=== PATIENT | female | born 1945 | race Caucasian/White ===

== ENCOUNTER 2020-06-06 11:10 | Outpatient (REF) | payer MEDICARE, SELFPAY ==
--- NOTE | 2020-06-06 12:22 | XR_ITS ---
EXAMINATION: XR CHEST CLINICAL INFORMATION: COPD. COMPARISON: None TECHNIQUE: 2 views of the chest were obtained. FINDINGS: The lungs are well-expanded with minimal prominence of interstitial markings in the right lung base but no focal consolidation, mass or pleural effusion. The heart size and pulmonary vascularity is normal. No gross bony abnormality seen. XR/XR chest 2V IMPRESSION: Unremarkable chest examination.
[2020-06-06 13:40] LABS: Hematocrit 38.8 % (37-47); Hemoglobin 12.2 g/dl (12.0-16.0); Mean Corpuscular HGB Conc 31.4 g/dl (31.0-35.0); Mean Corpuscular Hemoglobin 32.8 pg (27.0-33.0); Mean Corpuscular Volume 104.3 fL (80-98); Platelet Count 175 X10*3/uL (160-400); Red Blood Count 3.72 X10*6/uL (4.20-5.50); Red Cell Distribution Width 14.4 % (11.0-16.0)
[2020-06-06 13:48] LABS: SARS COV2 IgG Negative (Negative)
[2020-06-06 13:58] LABS: WBC ABN SCTR FOR CBC 1
[2020-06-06 14:14] LABS: White Blood Count 64.9 X10*3/uL (4.8-10.8)
[2020-06-06 14:35] LABS: Band Neutrophils Percent 0 % (3-5); Lymphocytes Absolute Manual 56.5 X10*3/uL (0.6-4.8); Lymphocytes Percent Manual 87 % (20-40); Monocytes Absolute Manual 3.2 X10*3/uL (0.0-1.2); Monocytes Percent Manual 5 % (2-11); Neutrophils Absolute Manual 5.2 X10*3/uL (2.2-7.9); Neutrophils Percent Manual 8 % (45-73); Platelet Estimate NORMAL (NORMAL); Platelet Morphology Comment NORMAL
[2020-06-06 14:36] LABS: RBC Morphology NOTED; Stomatocytes 1+
[2020-06-06 14:43] LABS: Erythrocyte Sedimentation Rate 29 MM/HR (0-20)
[2020-06-10 10:57] LABS: IgA 9 mg/dL (70-320); IgG 1040 mg/dL (600-1540); IgM 34 mg/dL (50-300)
== END 2020-06-06 11:11 | disposition home or self-care (01) ==
LOC: HO.LAB 11:10
PROVIDERS: PCP Internal Medicine; Referring Provider Internal Medicine; Visit Provider Hospitalist
DX: J44.9 Chronic obstructive pulmonary disease, unspecified (principal); J96.10 Chronic respiratory failure, unspecified whether with hypoxia or hypercapnia; F17.200 Nicotine dependence, unspecified, uncomplicated; Z20.828 Contact with and (suspected) exposure to other viral communicable diseases
CPT/HCPCS: 36415; 71046; 82784; 85007; 85027; 85060; 85652; 86769; 99212

== ENCOUNTER → 2020-10-06 11:02 | Outpatient (BNVA) | payer MEDICARE, SELFPAY | PROVIDERS: PCP Internal Medicine; Visit Provider Hospitalist | DX: J96.11 Chronic respiratory failure with hypoxia (principal); J44.0 Chronic obstructive pulmonary disease with (acute) lower respiratory infection; F17.200 Nicotine dependence, unspecified, uncomplicated | CPT/HCPCS: 99212 ==